=== PATIENT | male | born 1955 | race Hispanic/Latino ===

== ENCOUNTER → 2021-02-09 | Outpatient (CLI) | payer MEDICARE ==
[2021-02-09 16:28] LABS: CREATININE 1.9 mg/dL (0.5-1.5)
== END | disposition home or self-care (01) ==
LOC: LAB 15:41
PROVIDERS: ATTEND Orthopaedic Surgery
DX: E03.8 Other specified hypothyroidism (principal)
CPT/HCPCS: 36415; 82565; 84520